=== PATIENT | male | born 1980 | race Caucasian/White ===

== ENCOUNTER 2023-05-14 15:55 | Outpatient (AMB) | payer BC, SELFPAY ==
--- NOTE | 2023-05-14 16:29 | AM.OFFWIN_ITS ---
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/tick bite left calf(lobby) Intake Note: pt is here for c.o tike bite on left calf, concern of aniak disease Patient Tobacco Use Status: Never used Tobacco Allergies No Known Allergies Allergy (Verified 05/14/23 16:32) Do you need a note to return to daycare/school/sports/work: No HPI HPI Comments History of Present Illness Details [facility] reports tick bite to the left calf unknown when the tick bite occured, went hiking 2 days ago in [place] has pets in the home so could have came off them also noticed the tick imbedded to his leg today removed at home prior to arrival at [facility] Medical History (Updated 05/14/23 @ 16:47 by Sindi Mitchell APRN, SUPPORT REPRESENTATIVE) No known allergies Social History Patient Tobacco Use Status: Never used Tobacco Review of Systems Const All systems reviewed & are unremarkable except as noted in HPI and below Physical Exam Vital Signs: Last Vital Signs Temp 97.7 F 05/14/23 16:30 Pulse 52 05/14/23 16:30 BP 118/70 05/14/23 16:30 Pulse Ox 98 05/14/23 16:30 Oxygen Delivery Method Room Air 05/14/23 16:30 BMI result Body Mass Index 25.1 General: awake, alert, oriented. Answers questions appropriately. Fully engaged in examination. Skin: warm, dry, intact. 3cm X 3cm erythema migrans lesion to left proximal medial calf HEENT: Normocephalic. Hearing intact. Cardiac: External chest normal in appearance. Respiratory: No cough, audible wheezing or stridor. Abdomen: without gross distension. MS: No obvious swelling or deformities. Neurological: Oriented to person, place, time and situation. Thought process intact. Psychiatric: Appropriate mood and affect. Good judgment and insight. Assessment & Plan Assessment & Plan (1) Tick bite: Code(s): W57.XXXA - Bitten or stung by nonvenomous insect and other nonvenomous arthropods, initial encounter Plan tick bite to left proximal medial calf: doxycycline 100mg po bid X 10 days keep area clean and dry follow up with pcp or return here for any new or worsening symptoms Medications: New doxycycline hyclate 100 mg PO BID 20 caps 0RF 10 days W57.XXXA - Bitten or stung by nonvenomous insect and other nonvenomous arthropods, initial encounter Coding Level of Care Code New Pt Level 4 (15735) Diagnoses Tick bite W57.XXXA
[2023-05-14 16:30] VITALS: BP 118/70; PULSE 52; TEMP 36.5; O2SAT 98; BMI 25.1
== END 2023-05-14 16:39 | disposition home or self-care (01) ==
PROVIDERS: Visit Provider Registered Nurse Emergency
DX: T63.481A Toxic effect of venom of other arthropod, accidental (unintentional), initial encounter (principal)
CPT/HCPCS: 99204